=== PATIENT | female | born 1960 | race Caucasian/White ===

== ENCOUNTER 2018-03-30 09:26 | Inpatient (IN) | payer BC ==
[2018-03-30] MEDS ORDERED: PANTOPRAZOLE 40 MG/10 ML VIAL IVP STA (09:33)
[2018-03-30] MEDS ORDERED: SODIUM CHLORIDE 0.9% 1,000 ML IV STA ×2 (09:33)
[2018-03-30] MEDS ORDERED: ONDANSETRON 4 MG/2 ML VIAL IVP STA (09:33)
--- NOTE | 2018-03-30 09:44 | ED ---
Weakness HPI - General Stated complaint: abnormal labs Time Seen by Provider: 03/30/18 09:33 Source: patient, EMS, RN notes reviewed, old records reviewed Mode of arrival: EMS Limitations: no limitations - History of Present Illness Initial comments: This is a 58-year-old female the ER for evaluation. Patient does say for evaluation regarding weakness. Patient does have history of diabetes, persistent nausea vomiting elevated blood sugar. Patient states she feels weak dehydrated and just overall lack of energy. Patient states is been years since she actually had a full admission for diabetes in the first place. Patient denies any fevers, she is having nausea vomiting occasional diarrhea MD Complaint: generalized weakness, lack of energy -: days(s) Location: generalized, other (nausea and vomiting) Severity: moderate Severity scale (1-10): 4 Quality: other (no pain) Consistency: constant Improves with: none Worsens with: none Context: recent illness Associated Symptoms: loss of appetite, nausea/vomiting, shortness of breath - Related Data Home Medications Medication Instructions Recorded Confirmed Tamoxifen [Nolvadex] 20 mg PO HS 12/02/13 03/30/18 Joint Flex 1 tab PO HS 03/30/18 03/30/18 Levothyroxine Sodium [Synthroid] 75 mcg PO DAILY 03/30/18 03/30/18 Lisinopril [Prinivil] 5 mg PO DAILY 03/30/18 03/30/18 Allergies Allergy/AdvReac Type Severity Reaction Status Date / Time No Known Allergies Allergy Verified 03/30/18 10:10 Review of Systems ROS Statement: Those systems with pertinent positive or pertinent negative responses have been documented in the HPI. ROS Other: All systems not noted in ROS Statement are negative. Past Medical History Past Medical History: Diabetes Mellitus, Hyperlipidemia, Thyroid Disorder Additional Past Medical History / Comment(s): breast cancer History of Any Multi-Drug Resistant Organisms: None Reported Past Surgical History: Breast Surgery Past Psychological History: No Psychological Hx Reported Smoking Status: Never smoker Past Alcohol Use History: None Reported Past Drug Use History: None Reported - Past Family History Mother Family Medical History: Cancer Additional Family Medical History / Comment(s): Mother had cervical cancer. She is 82 yrs old. Father Family Medical History: Diabetes Mellitus Additional Family Medical History / Comment(s): Father at the age of 64 yrs from diabetic complications. General Exam Limitations: no limitations Course Vital Signs 03/30/18 09:34 Temperature 98.3 F Pulse Rate 117 H Respiratory 20 Rate Blood Pressure 147/79 O2 Sat by Pulse 100 Oximetry - Reevaluation(s) Reevaluation #1: 03/30/18 11:04 medical record is reviewed Reevaluation #2: 03/30/18 11:04 feeling better w symptom control EKG Findings - EKG Comments: EKG Findings:: EKG shows sinus tachycardia rate of 113, WI 150, QRS 60, QTc 493 Medical Decision Making - Medical Decision Making 58 female the ER for evaluation. Patient with positive nausea vomiting found to be in DKA, patient will be admitted for DKA protocol. Monitoring of left lites and boy's adviser. - Lab Data Result diagrams: 03/30/18 09:55 03/30/18 09:55 Lab Results 03/30/18 03/30/18 03/30/18 Range/Units 09:54 09:55 09:55 WBC (3.8-10.6) k/uL RBC (3.80-5.40) m/uL Hgb (11.4-16.0) gm/dL Hct (34.0-46.0) % MCV (80.0-100.0) fL MCH (25.0-35.0) pg MCHC (31.0-37.0) g/dL RDW (11.5-15.5) % Plt Count (150-450) k/uL Neutrophils % % Lymphocytes % % Monocytes % % Eosinophils % % Basophils % % Neutrophils # (1.3-7.7) k/uL Lymphocytes # (1.0-4.8) k/uL Monocytes # (0-1.0) k/uL Eosinophils # (0-0.7) k/uL Basophils # (0-0.2) k/uL PT (9.0-12.0) sec INR (<1.2) APTT (22.0-30.0) sec Sodium 142 (137-145) mmol/L Potassium 4.8 (3.5-5.1) mmol/L Chloride 107 (98-107) mmol/L Carbon Dioxide 14 L (22-30) mmol/L Anion Gap 21 mmol/L BUN 26 H (7-17) mg/dL Creatinine 1.11 H (0.52-1.04) mg/dL Est GFR (CKD-EPI)AfAm 63 (>60 ml/min/1.73 sqM) Est GFR (CKD-EPI)NonAf 55 (>60 ml/min/1.73 sqM) Glucose 555 H* (74-99) mg/dL POC Glucose (mg/dL) 481 H (75-99) mg/dL POC Glu Teletypewriter Operator ID Jojo Loaiza Plasma Lactic Acid Jac (0.7-2.0) mmol/L Calcium 10.3 H (8.4-10.2) mg/dL Phosphorus 5.7 H (2.5-4.5) mg/dL Magnesium 2.2 (1.6-2.3) mg/dL Total Bilirubin 0.9 (0.2-1.3) mg/dL AST 30 (14-36) U/L ALT 29 (9-52) U/L Alkaline Phosphatase 120 (38-126) U/L Total Creatine Kinase 67 (30-135) U/L CK-MB (CK-2) 1.1 (0.0-2.4) ng/mL CK-MB (CK-2) Rel Index 1.6 Troponin I <0.012 (0.000-0.034) ng/mL Total Protein 7.6 (6.3-8.2) g/dL Albumin 4.3 (3.5-5.0) g/dL Serum Alcohol <10 mg/dL Acetone, Qual Positive (Negative) 03/30/18 03/30/18 03/30/18 Range/Units 09:55 09:55 09:55 WBC 23.4 H (3.8-10.6) k/uL RBC 4.57 (3.80-5.40) m/uL Hgb 13.6 (11.4-16.0) gm/dL Hct 43.4 (34.0-46.0) % MCV 94.9 (80.0-100.0) fL MCH 29.7 (25.0-35.0) pg MCHC 31.3 (31.0-37.0) g/dL RDW 12.5 (11.5-15.5) % Plt Count 243 (150-450) k/uL Neutrophils % 92 % Lymphocytes % 3 % Monocytes % 4 % Eosinophils % 1 % Basophils % 0 % Neutrophils # 21.4 H (1.3-7.7) k/uL Lymphocytes # 0.8 L (1.0-4.8) k/uL Monocytes # 1.0 (0-1.0) k/uL Eosinophils # 0.2 (0-0.7) k/uL Basophils # 0.0 (0-0.2) k/uL PT 11.3 (9.0-12.0) sec INR 1.1 (<1.2) APTT 20.1 L (22.0-30.0) sec Sodium (137-145) mmol/L Potassium (3.5-5.1) mmol/L Chloride (98-107) mmol/L Carbon Dioxide (22-30) mmol/L Anion Gap mmol/L BUN (7-17) mg/dL Creatinine (0.52-1.04) mg/dL Est GFR (CKD-EPI)AfAm (>60 ml/min/1.73 sqM) Est GFR (CKD-EPI)NonAf (>60 ml/min/1.73 sqM) Glucose (74-99) mg/dL POC Glucose (mg/dL) (75-99) mg/dL POC Glu Teletypewriter Operator ID Plasma Lactic Acid Jac 6.4 H* (0.7-2.0) mmol/L Calcium (8.4-10.2) mg/dL Phosphorus (2.5-4.5) mg/dL Magnesium (1.6-2.3) mg/dL Total Bilirubin (0.2-1.3) mg/dL AST (14-36) U/L ALT (9-52) U/L Alkaline Phosphatase (38-126) U/L Total Creatine Kinase (30-135) U/L CK-MB (CK-2) (0.0-2.4) ng/mL CK-MB (CK-2) Rel Index Troponin I (0.000-0.034) ng/mL Total Protein (6.3-8.2) g/dL Albumin (3.5-5.0) g/dL Serum Alcohol mg/dL Acetone, Qual (Negative) Critical Care Time Critical Care Time: Yes Total Critical Care Time: 31 Disposition Clinical Impression: DKA (diabetic ketoacidoses) Disposition: ADMITTED IP TO THIS HOSP Condition: Serious Is patient prescribed a controlled substance at d/c from ED?: No
[2018-03-30 09:57] LABS: Glucose,Whole Blood 481 mg/dL (75-99)
[2018-03-30 10:10] LABS: Basophils % (A) 0 %; Eosinophils # (A) 0.2 k/uL (0-0.7); Eosinophils % (A) 1 %; HCT 43.4 % (34.0-46.0); HGB 13.6 gm/dL (11.4-16.0); Lymphocytes # (A) 0.8 k/uL (1.0-4.8); Lymphocytes % (A) 3 %; MCH 29.7 pg (25.0-35.0); MCHC 31.3 g/dL (31.0-37.0); MCV 94.9 fL (80.0-100.0); Mean Platelet Volume 7.5; Monocytes % (A) 4 %; Neutrophils # (A) 21.4 k/uL (1.3-7.7); Neutrophils % (A) 92 %; Platelet Count 243 k/uL (150-450); RBC 4.57 m/uL (3.80-5.40); RDW 12.5 % (11.5-15.5); WBC 23.4 k/uL (3.8-10.6)
[2018-03-30 10:29] LABS: INR 1.1 (<1.2); Prothrombin Time 11.3 sec (9.0-12.0)
[2018-03-30 10:31] LABS: Creatine Kinase 67 U/L (30-135)
[2018-03-30 10:32] LABS: ALT 29 U/L (9-52); AST 30 U/L (14-36); Albumin 4.3 g/dL (3.5-5.0); Alcohol <10 mg/dL; Alkaline Phosphatase 120 U/L (38-126); Anion Gap 21 mmol/L; Blood Urea Nitrogen 26 mg/dL (7-17); Calcium 10.3 mg/dL (8.4-10.2); Carbon Dioxide 14 mmol/L (22-30); Chloride 107 mmol/L (98-107); Magnesium 2.2 mg/dL (1.6-2.3); Partial Thromboplastin Time 20.1 sec (22.0-30.0); Phosphorus 5.7 mg/dL (2.5-4.5); Potassium 4.8 mmol/L (3.5-5.1); Sodium 142 mmol/L (137-145); Total Bilirubin 0.9 mg/dL (0.2-1.3); Total Protein 7.6 g/dL (6.3-8.2)
[2018-03-30 10:39] LABS: Glucose 555 mg/dL (74-99)
[2018-03-30 10:43] LABS: Creatine Kinase MB 1.1 ng/mL (0.0-2.4); Troponin I <0.012 ng/mL (0.000-0.034)
[2018-03-30] MEDS ORDERED: MORPHINE SULFATE 4 MG/ML SYRINGE IVP PRN (11:00)
[2018-03-30] MEDS ORDERED: INSULIN REGULAR BOLUS (FROM DRIP BAG) IV ONE (11:00)
[2018-03-30] MEDS ORDERED: ONDANSETRON 4 MG/2 ML VIAL IVP PRN (11:00)
[2018-03-30 11:36] LABS: Appearance,Urine Clear (Clear); Bacteria,Urine Rare /hpf; Bilirubin,Urine Negative (Negative); Blood,Urine Negative (Negative); Color,Urine Light Yellow; Glucose,Urine (UA) 4+ (Negative); Leukocyte Esterase,Urine Moderate (Negative); Mucus,Urine Rare /hpf; Nitrite,Urine Negative (Negative); Protein,Urine Negative (Negative); RBC,Urine 1 /hpf (0-5); Specific Gravity,Urine 1.014 (1.001-1.035); Urobilinogen,Urine <2.0 mg/dL (<2.0); WBC,Urine 9 /hpf (0-5)
[2018-03-30] MEDS: INSULIN REGULAR 100 UNIT in SODIUM CHLORIDE 0.9% 100 ML IV SCH ×2 (11:37→20:19)
[2018-03-30] MEDS: SODIUM CHLORIDE 0.9% 1,000 ML IV SCH ×2 (11:37→16:07)
[2018-03-30] MEDS ORDERED: INFLUENZA VACCINE (6 MOS+) 60 MCG/0.5 ML SYRINGE IM ONE (11:39)
[2018-03-30 11:43] LABS: Ketones,Urine 3+ (Negative)
[2018-03-30 12:34] LABS: Potassium 4.7 mmol/L (3.5-5.1)
[2018-03-30 13:04] LABS: Glucose,Whole Blood 416 mg/dL (75-99)
[2018-03-30 13:57] LABS: Glucose,Whole Blood 314 mg/dL (75-99)
[2018-03-30 15:08] LABS: Glucose,Whole Blood 231 mg/dL (75-99)
[2018-03-30] MEDS: D5-0.45% NACL WITH KCL 20MEQ/L 1,000 ML IV SCH ×3 (15:08→21:57)
[2018-03-30 15:57] LABS: Glucose,Whole Blood 220 mg/dL (75-99)
[2018-03-30 16:58] LABS: Glucose,Whole Blood 200 mg/dL (75-99)
[2018-03-30 17:13] LABS: Phosphorus 1.6 mg/dL (2.5-4.5); Potassium 3.6 mmol/L (3.5-5.1)
[2018-03-30] MEDS ORDERED: ACETAMINOPHEN TAB 325 MG TAB PO PRN (18:05)
[2018-03-30 18:06] LABS: Glucose,Whole Blood 188 mg/dL (75-99)
[2018-03-30 19:10] LABS: Glucose,Whole Blood 178 mg/dL (75-99)
[2018-03-30 20:04] LABS: Glucose,Whole Blood 166 mg/dL (75-99)
[2018-03-30 21:06] LABS: Glucose,Whole Blood 143 mg/dL (75-99)
[2018-03-30 21:57] LABS: Glucose,Whole Blood 150 mg/dL (75-99)
[2018-03-30 23:01] LABS: Glucose,Whole Blood 173 mg/dL (75-99)
[2018-03-31] LABS: Glucose,Whole Blood 156 mg/dL (75-99)
[2018-03-31 00:57] LABS: Glucose,Whole Blood 143 mg/dL (75-99)
[2018-03-31 01:56] LABS: Glucose,Whole Blood 171 mg/dL (75-99)
[2018-03-31 03:06] LABS: Glucose,Whole Blood 196 mg/dL (75-99)
[2018-03-31 04:00] LABS: Glucose,Whole Blood 200 mg/dL (75-99)
[2018-03-31 05:06] LABS: Glucose,Whole Blood 224 mg/dL (75-99)
--- NOTE | 2018-03-31 05:40 | P.HPIM ---
History of Present Illness H&P Date: 03/30/18 Chief Complaint: DKA This is a 58-year-old female one of Dr. Palm with a previous medical history significant for diabetes mellitus type 1, vitiligo, hypothyroidism, history of breast cancer in 2013 2007 post lumpectomy currently on tamoxifen for the past 6 years, patient developed to have increase abdominal pain associated with intractable nausea vomiting and diarrhea after she had food in the restaurant, patient was checking her sugar was reading quite high she did give herself multiple boluses see she did change her insulin pump tubing twice without any benefit she ended up coming to the ER she was found to be in diabetic ketoacidosis and the patient was started on insulin drip as well as IV fluid resuscitation and she was admitted to the hospital for treatment of DKA. Review of Systems Constitutional: Denies anorexia, Denies chronic headaches, Denies lethargy, Denies weakness, Denies weight gain Eyes: denies blurred vision, denies bulging eye, denies decreased vision Ears: deny: decreased hearing Ears, nose, mouth and throat: Denies dysphagia, Denies neck lump, Denies sore throat Cardiovascular: Denies chest pain, Denies decreased exercise tolerance, Denies lightheadedness, Denies orthopnea, Denies rapid heart beat, Denies shortness of breath, Denies syncope Respiratory: Denies congestion, Denies cough, Denies cough with sputum, Denies home oxygen, Denies sleep apnea, Denies snoring, Denies wheezing Gastrointestinal: Reports abdominal pain, Reports bloating, Reports change in bowel habits, Reports diarrhea, Reports heartburn, Reports indigestion, Reports nausea, Reports vomiting, Denies belching, Denies melena Genitourinary: Denies dysuria, Denies hematuria Musculoskeletal: Denies myalgias Musculoskeletal: absent: ankle pain, ankle stiffness, ankle swelling, elbow pain , elbow stiffness, elbow swelling, foot pain, foot stiffness, foot swelling, hand pain, hand stiffness, hand swelling, hip pain, hip stiffness, hip swelling , knee pain, knee stiffness, knee swelling, shoulder pain, shoulder stiffness, shoulder swelling, wrist pain, wrist stiffness, wrist swelling Integumentary: Reports color changes, Denies pruritus, Denies rash Neurological: Denies numbness, Denies weakness Psychiatric: Denies anxiety, Denies depression Endocrine: Denies fatigue, Denies weight change Past Medical History Past Medical History: Diabetes Mellitus, Hyperlipidemia, Hypertension, Skin Disorder, Thyroid Disorder Additional Past Medical History / Comment(s): breast 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 History of Any Multi-Drug Resistant Organisms: None Reported Past Surgical History: Breast Surgery Additional Past Surgical History / Comment(s): Bilateral breast lumpectomies with R side done twice d/t margins not clean, nose surgery as a child with septoplasty, . Past Anesthesia/Blood Transfusion Reactions: No Reported Reaction Past Psychological History: No Psychological Hx Reported Smoking Status: Never smoker Past Alcohol Use History: None Reported Past Drug Use History: None Reported - Past Family History Mother Family Medical History: Cancer Additional Family Medical History / Comment(s): Mother had cervical cancer. She is 82 yrs old. Father Family Medical History: Diabetes Mellitus Additional Family Medical History / Comment(s): Father at the age of 64 yrs from diabetic complications. Brother(s) Family Medical History: No Reported History (Patient has one brother no major medical problems.) Sister(s) Family Medical History: No Reported History (Patient has 4 sisters no major medical problems.) Daughter(s) Family Medical History: No Reported History (Patient has one daughter who is healthy.) Medications and Allergies Home Medications Medication Instructions Recorded Confirmed Type Tamoxifen [Nolvadex] 20 mg PO HS 12/02/13 03/30/18 History Joint Flex 1 tab PO HS 03/30/18 03/30/18 History Levothyroxine Sodium [Synthroid] 75 mcg PO DAILY 03/30/18 03/30/18 History Lisinopril [Prinivil] 5 mg PO DAILY 03/30/18 03/30/18 History Allergies Allergy/AdvReac Type Severity Reaction Status Date / Time No Known Allergies Allergy Verified 03/30/18 10:10 Physical Exam Vitals: Vital Signs Temp Pulse Pulse Resp BP BP Pulse Ox 03/30/18 15:42 97.5 F L 112 H 18 112/60 96 03/30/18 12:46 97.6 F 112 H 18 98/51 98 03/30/18 11:30 115/105 03/30/18 11:00 113/54 03/30/18 10:30 134/74 92 L 03/30/18 10:00 147/79 99 03/30/18 09:34 98.3 F 117 H 20 147/79 100 Intake and Output 03/30/18 03/30/18 03/30/18 06:59 14:59 22:59 Intake Total 16.653 35.853 Balance 16.653 35.853 Intake: Intake, IV Titration 16.653 35.853 Amount Insulin Regular 100 unit 16.653 35.853 In Sodium Chloride 0.9% 100 ml @ 0.1 UNITS/KG/HR 6.78 mls/hr IV .[id number] MARTHA Rx#:[id number] Other: # Voids 1 Weight 67.132 kg - Constitutional General appearance: mild distress, thin - EENT Eyes: abnormal pupil, EOMI, PERRLA, no ptosis, no scleral icterus, normal appearance ENT: hearing grossly normal, NA/AT, normal oropharynx, no thrush Ears: bilateral: normal - Neck Neck: no lymphadenopathy, normal ROM, no rigidity, no stridor, no thyromegaly Carotids: bilateral: upstroke normal Thyroid: bilateral: normal size - Respiratory Respiratory: bilateral: diminished, negative: dullness, rales, rhonchi, wheezing , prolonged expiration, prolonged inspiration - Cardiovascular Rhythm: regular Heart sounds: normal: S1, S2 Abnormal Heart Sounds: no systolic murmur, no S3 Gallop, no S4 Gallop, no click - Gastrointestinal General gastrointestinal: normal bowel sounds, soft, no splenomegaly, no tenderness, no umbilical hernia, no ventral hernia - Integumentary Integumentary: normal, normal turgor - Musculoskeletal Musculoskeletal: gait normal, strength equal bilaterally - Psychiatric Psychiatric: A&O x's 3, appropriate affect, intact judgment & insight Results CBC & Chem 7: 03/30/18 09:55 03/30/18 16:29 Labs: Abnormal Lab Results - Last 24 Hours (Table) 03/30/18 03/30/18 03/30/18 Range/Units 09:54 09:55 09:55 WBC 23.4 H (3.8-10.6) k/uL Neutrophils # 21.4 H (1.3-7.7) k/uL Lymphocytes # 0.8 L (1.0-4.8) k/uL APTT (22.0-30.0) sec Chloride (98-107) mmol/L Carbon Dioxide 14 L (22-30) mmol/L BUN 26 H (7-17) mg/dL Creatinine 1.11 H (0.52-1.04) mg/dL Glucose 555 H* (74-99) mg/dL POC Glucose (mg/dL) 481 H (75-99) mg/dL Plasma Lactic Acid Jac (0.7-2.0) mmol/L Calcium 10.3 H (8.4-10.2) mg/dL Phosphorus 5.7 H (2.5-4.5) mg/dL Urine Glucose (UA) (Negative) Urine Ketones (Negative) Ur Leukocyte Esterase (Negative) Urine WBC (0-5) /hpf Urine Bacteria (None) /hpf Urine Mucus (None) /hpf 03/30/18 03/30/18 03/30/18 Range/Units 09:55 09:55 11:00 WBC (3.8-10.6) k/uL Neutrophils # (1.3-7.7) k/uL Lymphocytes # (1.0-4.8) k/uL APTT 20.1 L (22.0-30.0) sec Chloride (98-107) mmol/L Carbon Dioxide (22-30) mmol/L BUN (7-17) mg/dL Creatinine (0.52-1.04) mg/dL Glucose (74-99) mg/dL POC Glucose (mg/dL) (75-99) mg/dL Plasma Lactic Acid Jac 6.4 H* (0.7-2.0) mmol/L Calcium (8.4-10.2) mg/dL Phosphorus (2.5-4.5) mg/dL Urine Glucose (UA) 4+ H (Negative) Urine Ketones 3+ H (Negative) Ur Leukocyte Esterase Moderate H (Negative) Urine WBC 9 H (0-5) /hpf Urine Bacteria Rare H (None) /hpf Urine Mucus Rare H (None) /hpf 03/30/18 03/30/18 03/30/18 Range/Units 11:40 11:40 13:02 WBC (3.8-10.6) k/uL Neutrophils # (1.3-7.7) k/uL Lymphocytes # (1.0-4.8) k/uL APTT (22.0-30.0) sec Chloride 110 H (98-107) mmol/L Carbon Dioxide 14 L (22-30) mmol/L BUN 25 H (7-17) mg/dL Creatinine (0.52-1.04) mg/dL Glucose 509 H* (74-99) mg/dL POC Glucose (mg/dL) 416 H (75-99) mg/dL Plasma Lactic Acid Jac (0.7-2.0) mmol/L Calcium (8.4-10.2) mg/dL Phosphorus 5.2 H (2.5-4.5) mg/dL Urine Glucose (UA) (Negative) Urine Ketones (Negative) Ur Leukocyte Esterase (Negative) Urine WBC (0-5) /hpf Urine Bacteria (None) /hpf Urine Mucus (None) /hpf 03/30/18 03/30/18 03/30/18 Range/Units 13:55 13:55 14:56 WBC (3.8-10.6) k/uL Neutrophils # (1.3-7.7) k/uL Lymphocytes # (1.0-4.8) k/uL APTT (22.0-30.0) sec Chloride (98-107) mmol/L Carbon Dioxide (22-30) mmol/L BUN (7-17) mg/dL Creatinine (0.52-1.04) mg/dL Glucose (74-99) mg/dL POC Glucose (mg/dL) 314 H 231 H (75-99) mg/dL Plasma Lactic Acid Jac 4.2 H* (0.7-2.0) mmol/L Calcium (8.4-10.2) mg/dL Phosphorus (2.5-4.5) mg/dL Urine Glucose (UA) (Negative) Urine Ketones (Negative) Ur Leukocyte Esterase (Negative) Urine WBC (0-5) /hpf Urine Bacteria (None) /hpf Urine Mucus (None) /hpf 03/30/18 03/30/18 03/30/18 Range/Units 15:54 16:29 16:56 WBC (3.8-10.6) k/uL Neutrophils # (1.3-7.7) k/uL Lymphocytes # (1.0-4.8) k/uL APTT (22.0-30.0) sec Chloride 116 H (98-107) mmol/L Carbon Dioxide 21 L (22-30) mmol/L BUN 26 H (7-17) mg/dL Creatinine 1.06 H (0.52-1.04) mg/dL Glucose 206 H (74-99) mg/dL POC Glucose (mg/dL) 220 H 200 H (75-99) mg/dL Plasma Lactic Acid Jac (0.7-2.0) mmol/L Calcium (8.4-10.2) mg/dL Phosphorus 1.6 L (2.5-4.5) mg/dL Urine Glucose (UA) (Negative) Urine Ketones (Negative) Ur Leukocyte Esterase (Negative) Urine WBC (0-5) /hpf Urine Bacteria (None) /hpf Urine Mucus (None) /hpf 03/30/18 Range/Units 18:01 WBC (3.8-10.6) k/uL Neutrophils # (1.3-7.7) k/uL Lymphocytes # (1.0-4.8) k/uL APTT (22.0-30.0) sec Chloride (98-107) mmol/L Carbon Dioxide (22-30) mmol/L BUN (7-17) mg/dL Creatinine (0.52-1.04) mg/dL Glucose (74-99) mg/dL POC Glucose (mg/dL) 188 H (75-99) mg/dL Plasma Lactic Acid Jac (0.7-2.0) mmol/L Calcium (8.4-10.2) mg/dL Phosphorus (2.5-4.5) mg/dL Urine Glucose (UA) (Negative) Urine Ketones (Negative) Ur Leukocyte Esterase (Negative) Urine WBC (0-5) /hpf Urine Bacteria (None) /hpf Urine Mucus (None) /hpf Microbiology - Last 24 Hours (Table) 03/30/18 11:00 Urine Culture - Preliminary Urine,Voided Thrombosis Risk Factor Assmnt - DVT/VTE Prophylaxis DVT/VTE Prophylaxis: Pharmacologic Prophylaxis ordered, Mechanical Prophylaxis ordered - Choose All That Apply Any of the Below Risk Factors Present?: Yes Each Factor Represents 1 point: Age 41-60 years, Obesity (BMI >25) Other Risk Factors: Yes Each Risk Factor Represents 2 Points: Malignancy Other congenital or acquired thrombophilia - If yes, enter type in comment: No Thrombosis Risk Factor Assessment Total Risk Factor Score: 4 Thrombosis Risk Factor Assessment Level: Moderate Risk Assessment and Plan Assessment: Assessment and plan: 1. Diabetic ketoacidosis. Continue IV fluids, continued insulin drip, keep the patient insulin drip overnight and transition to her pump in the morning then discontinue some pump, advance diet as tolerated, continue to monitor electrolytes magnesium or phosphorus, continue to monitor the patient very closely, her anion gap is closed already we will continue to monitor. 2. Diabetes mellitus type 1. Continue treatment as in paragraph #1, transition the patient insulin pump tomorrow morning. 3. Hypothyroidism. Continue patient on levothyroxin 75 g orally once every day. 4. Hypertension. Continue lisinopril 5 mg orally once every day. 5. History of breast cancer. Hold off tamoxifen while she was in the hospital. 6. DVT prophylaxis. Heparin 5000 units subcutaneously every 12 hours. 7. GI prophylaxis. Protonix 40 mg IVP once every day. 8. Admit to inpatient. Estimated length of stay 2 midnights. 9. Full code.
[2018-03-31 06:00] LABS: Glucose,Whole Blood 239 mg/dL (75-99)
[2018-03-31] MEDS ORDERED: LEVOTHYROXINE 75 MCG TAB PO SCH (06:30)
[2018-03-31 06:38] LABS: Basophils % (A) 0 %; Eosinophils # (A) 0.1 k/uL (0-0.7); Eosinophils % (A) 0 %; HGB 11.3 gm/dL (11.4-16.0); Lymphocytes # (A) 2.4 k/uL (1.0-4.8); Lymphocytes % (A) 10 %; MCHC 32.2 g/dL (31.0-37.0); MCV 93.2 fL (80.0-100.0); Mean Platelet Volume 6.9; Monocytes # (A) 1.1 k/uL (0-1.0); Monocytes % (A) 4 %; Neutrophils # (A) 20.5 k/uL (1.3-7.7); Neutrophils % (A) 84 %; Platelet Count 229 k/uL (150-450); RBC 3.75 m/uL (3.80-5.40); RDW 12.3 % (11.5-15.5); WBC 24.4 k/uL (3.8-10.6)
[2018-03-31 07:00] LABS: Calcium 8.6 mg/dL (8.4-10.2); Magnesium 1.9 mg/dL (1.6-2.3); Phosphorus 2.3 mg/dL (2.5-4.5); Potassium 4.5 mmol/L (3.5-5.1)
[2018-03-31 07:09] LABS: Glucose,Whole Blood 229 mg/dL (75-99)
[2018-03-31 08:15] LABS: Glucose,Whole Blood 289 mg/dL (75-99)
[2018-03-31] MEDS: LISINOPRIL 5 MG TAB PO SCH ×2 (08:30→10:12)
[2018-03-31 08:54] LABS: Glucose,Whole Blood 312 mg/dL (75-99)
[2018-03-31] MEDS ORDERED: PANTOPRAZOLE 40 MG/10 ML VIAL IVP SCH (09:00)
[2018-03-31 09:52] LABS: Glucose,Whole Blood 311 mg/dL (75-99)
[2018-03-31 11:01] LABS: Glucose,Whole Blood 392 mg/dL (75-99)
[2018-03-31 11:47] VITALS: BMI 25.4
[2018-03-31 12:03] VITALS: BP 122/66; PULSE 93; RESP 18; TEMP 97
[2018-03-31 12:07] LABS: Glucose,Whole Blood 293 mg/dL (75-99)
[2018-03-31] MEDS ORDERED: INSULIN PUMP BASAL RATES 1 EACH MISC MISCELLANE PRN (12:30)
[2018-03-31] MEDS ORDERED: INSPUCOR MISCELLANE PRN (12:30)
[2018-03-31] MEDS ORDERED: INSULIN PUMP ACTIVE INSULIN 1 EACH MISC MISCELLANE PRN (12:30)
[2018-03-31] MEDS ORDERED: INSULIN PUMP TARGET GLUCOSE 1 EACH MISC MISCELLANE PRN (12:30)
[2018-03-31] MEDS ORDERED: INSULIN ASPART 100 UNIT/ML 1 ML 10 ML VIAL SQ PRN (12:30)
[2018-03-31] MEDS: D5-0.45% NACL WITH KCL 20MEQ/L 1,000 ML IV SCH ×2 (12:35→16:13)
[2018-03-31 12:53] LABS: Glucose,Whole Blood 238 mg/dL (75-99)
[2018-03-31] MEDS ORDERED: INSULIN ASPART 100 UNIT/ML 1 ML 10 ML VIAL SQ ONE (13:00)
--- NOTE | 2018-03-31 13:54 | P.DS ---
Providers Date of admission: 03/30/18 11:00 Expected date of discharge: 03/31/18 Attending physician: Juan Carlos Bhakta Primary care physician: Leatha Palm [facility] Course: This is a 58-year-old female one of Dr. Palm with a previous medical history significant for diabetes mellitus type 1, vitiligo, hypothyroidism, history of breast cancer in 2013 2007 post lumpectomy currently on tamoxifen for the past 6 years, patient developed to have increase abdominal pain associated with intractable nausea vomiting and diarrhea after she had food in the restaurant, patient was checking her sugar was reading quite high she did give herself multiple boluses see she did change her insulin pump tubing twice without any benefit she ended up coming to the ER she was found to be in diabetic ketoacidosis and the patient was started on insulin drip as well as IV fluid resuscitation and she was admitted to the hospital for treatment of DKA. 03/31: Patient will be transitioned back to insulin pump today and plan to meet with senior biostatistician. Repeat lactic acid 1.6, blood sugars are running in the 200s. Patient will be given NovoLog, stop insulin drip and start pump today. Patient will be discharged later today once proper functioning of the pump is noted. Patient did have low blood pressure reading this morning at 97/ 53 and she did tell the nurse that she gets dizzy whenever she takes this medication. We will plan to decrease it to 2.5 mg for home. Patient denies any shortness of breath. No nausea or vomiting. She states she is feeling much better from yesterday. Patient will be discharged home today in stable condition. Discharge diagnoses: 1. Diabetic ketoacidosis. 2. Diabetes mellitus type 1. 3. Hypothyroidism. 4. Hypertension. 5. History of breast cancer. Discharge plan: Home Impression and plan of care have been directed as dictated by the signing physician. Britt Canela nurse practitioner acting as scribe for signing physician. Patient Condition at Discharge: Good Plan - Discharge Summary Discharge Rx Participant: No New Discharge Prescriptions: Continue Tamoxifen [Nolvadex] 20 mg PO HS Levothyroxine Sodium [Synthroid] 75 mcg PO DAILY Joint Flex 1 tab PO HS Changed Lisinopril [Prinivil] 2.5 mg PO DAILY #0 Discharge Medication List Tamoxifen [Nolvadex] 20 mg PO HS 12/02/13 [History] Joint Flex 1 tab PO HS 03/30/18 [History] Levothyroxine Sodium [Synthroid] 75 mcg PO DAILY 03/30/18 [History] Lisinopril [Prinivil] 2.5 mg PO DAILY #0 03/31/18 [Rx] Follow up Appointment(s)/Referral(s): Leatha Palm MD [Primary Care Provider] - 1 Week (Office is closed please call to schedule an appointment) Patient Instructions/Handouts: Diabetic Ketoacidosis (DC)
[2018-03-31] MEDS: INSULIN PUMP MEAL BOLUS 1 UNIT MISC MISCELLANE SCH ×2 (15:03→17:28)
[2018-03-31 16:09] LABS: Glucose,Whole Blood 245 mg/dL (75-99)
[2018-03-31 17:28] LABS: Glucose,Whole Blood 216 mg/dL (75-99)
== END 2018-03-31 19:09 | disposition home or self-care (01) | DRG 639 ==
LOC: EC 09:26 → 3SCARD 11:00
PROVIDERS: ADMIT Internal Medicine; ATTEND Internal Medicine
DX: E10.10 Type 1 diabetes mellitus with ketoacidosis without coma (principal); E10.319 Type 1 diabetes mellitus with unspecified diabetic retinopathy without macular edema; E10.42 Type 1 diabetes mellitus with diabetic polyneuropathy; E03.9 Hypothyroidism, unspecified; E78.5 Hyperlipidemia, unspecified; I10 Essential (primary) hypertension; L80 Vitiligo; Z79.4 Long term (current) use of insulin; Z79.890 Hormone replacement therapy; Z79.899 Other long term (current) drug therapy; Z80.49 Family history of malignant neoplasm of other genital organs; Z83.3 Family history of diabetes mellitus; Z85.3 Personal history of malignant neoplasm of breast
CPT/HCPCS: 36415; 80048; 80051; 80053; 80320; 81001; 82009; 82550; 82553; 82565; 82947; 83605; 83735; 84100; 84484; 84520; 85025; 85610; 85730; 87086; 87502; 90686; 93005; 96361; 96374; 96375; 99291

== ENCOUNTER → 2021-05-12 | Outpatient (CLI) | payer BC ==
--- NOTE | 2021-05-12 20:40 | CT ---
EXAMINATION TYPE: CT lumbar spine wo con DATE OF EXAM: 05/12/2021 3:57 PM COMPARISON: X-ray dated 04/27/2021 HISTORY: back and left hip pain CT DLP: 404.1 mGycm Automated exposure control for dose reduction was used. Technique: Unenhanced CT of the lumbar spine was performed. Bone and soft tissue window settings are submitted as well as coronal and sagittal reconstructions. 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 Associated grade 1-2 anterolisthesis of L5 over S1. No evidence of L5 pars break is identified. Severe degenerative changes at L5-S1 level with markedly degenerated disc demonstrating vacuum phenom enon and opposing endplate osteophytosis/sclerotic changes. No definite vertebral body collapse or ac gonsalo displaced fracture. L1-L2: Normal disc space height. No disc herniation protrusion or central stenosis. No facet joint arthropathy. No evidence for foraminal encroachment. L2-L3: No significant disc disease, central spinal canal stenosis or neuroforaminal stenosis. L3-L4: Mild diffuse posterior disc bulge associated with ligamentum flavum hypertrophy, causing sever e central spinal canal stenosis without significant neuroforaminal stenosis. L4-L5: Mild diffuse posterior disc bulge associated with mild ligamentum flavum hypertrophy and facet osteoarthropathy, causing moderate to severe central spinal canal stenosis and mild right neuroforam inal stenosis. Suspected compression of L5 nerve roots in their lateral recesses. L5-S1: Markedly degenerative changes as described above with grade 1-2 anterolisthesis and diffuse po sterior disc bulge, causing severe central spinal canal stenosis at that level, and moderate to sever e bilateral neuroforaminal stenosis. Suspected compression of S1 nerve roots in their lateral recesse s. Minimal infiltration of the posterior aspect of the right lung base, possibly inflammatory/infectious in etiology, please correlate clinically. Further dedicated CT scan of the chest can be considered i f clinically required. Scattered arterial atherosclerotic calcifications. No paraspinal lesion. IMPRESSION: Grade 1-2 anterolisthesis of L5 over S1 with marked degenerative changes, other chronic changes at L5 -S1 level and suspected multilevel nerve root compression as detailed above, please correlate clinica lly. Further MRI assessment can be considered. Other incidental findings as described above.
== END | disposition home or self-care (01) ==
LOC: RADCTMAIN 15:28
PROVIDERS: ATTEND Orthopaedic Surgery
DX: M43.17 Spondylolisthesis, lumbosacral region (principal); M47.817 Spondylosis without myelopathy or radiculopathy, lumbosacral region; M25.552 Pain in left hip
CPT/HCPCS: 72131

== ENCOUNTER → 2021-05-14 | Outpatient (CLI) | payer BC | END | disposition home or self-care (01) | LOC: RADMRIMAIN 10:55 | PROVIDERS: ATTEND Orthopaedic Surgery | DX: Z53.9 Procedure and treatment not carried out, unspecified reason (principal) ==

== ENCOUNTER → 2021-07-31 | Outpatient (CLI) | payer BC ==
--- NOTE | 2021-08-01 03:06 | MR ---
EXAMINATION TYPE: MR lumbar spine wo con DATE OF EXAM: 07/31/2021 COMPARISON: None HISTORY: Radiculopathy, back and left hip pain Multiplanar multiecho imaging of the lumbar spine without contrast. There is narrowing of L5-S1 disc space. There is a 5 mm anterior subluxation of the L5 vertebra in re lation to S1. The other disc spaces are fairly normal. There is developmentally adequate spinal canal. No spinal st enosis. The neural foramina are fairly well-maintained. There is no lumbar paraspinal mass. Sacroilia c joints appear intact. No focal bone destruction. IMPRESSION: There is a degenerative first-degree L5-S1 spondylolisthesis. No acute bony abnormality. No fracture. No spinal stenosis.
== END | disposition home or self-care (01) ==
LOC: RADMRIMAIN 13:08
PROVIDERS: ATTEND Orthopaedic Surgery
DX: M43.17 Spondylolisthesis, lumbosacral region (principal); M25.552 Pain in left hip
CPT/HCPCS: 72148

== ENCOUNTER → 2022-12-17 | Outpatient (CLI) | payer BC ==
--- NOTE | 2022-12-17 12:12 | XR ---
EXAMINATION TYPE: XR chest 2V DATE OF EXAM: 12/17/2022 12:00 PM COMPARISON: Chest radiographs from 08/23/2011 TECHNIQUE: XR chest 2V Frontal and lateral views of the chest. CLINICAL INDICATION:Female, 62 years old with history of J45.40 Moderate persistent asthma; FINDINGS: Lungs/Pleura: There is flattening of the diaphragm with increased lucency of the lungs. No evidence o f pneumothorax, pleural effusion or focal consolidation. Pulmonary vascularity: Unremarkable. Heart/mediastinum: Cardiomediastinal silhouette is unremarkable. Atherosclerotic calcifications are seen in the aorta. Musculoskeletal: No acute osseous pathology. Other findings: Surgical clips in the right breast. IMPRESSION: 1. No acute cardiopulmonary disease/process. 2. Hyperinflation compatible with asthma.
== END | disposition home or self-care (01) ==
LOC: RADXRMAIN 11:33
PROVIDERS: ATTEND Family Medicine
DX: J45.40 Moderate persistent asthma, uncomplicated (principal)
CPT/HCPCS: 71046